=== PATIENT | female | born 1955 | race African-American/Black ===

== ENCOUNTER 2017-12-29 02:46 | Emergency (ER) | payer SELFPAY ==
[~2017-12-29] VITALS: Ht 165.1 cm; Wt 104.0 kg
[2017-12-29] MEDS ORDERED: KETOROLAC 30MG/ML VIAL IV STA (06:20)
[2017-12-29] MEDS ORDERED: LORAZEPAM 2MG/ML CPJ IV ONE (06:30)
[2017-12-29 06:36] LABS: BASOPHILS % 1.5 % (0.0-2.0); EOSINOPHILS % 2.2 % (0.0-5.0); HEMOGLOBIN. 11.2 g/dL (12.0-16.0); LYMPHOCYTES % 30.7 % (20.0-50.0); MEAN CORPUSCULAR HEMOGLOBIN 30.1 pg (28.0-32.0); MEAN CORPUSCULAR VOLUME 91.5 fL (81.0-99.0); MEAN PLATELET VOLUME 7.2 fl (7.4-10.4); MONOCYTES % 7.9 % (2.0-8.0); NEUTROPHILS % 57.7 % (40.0-76.0); PLATELET 427 x1000/uL (130-400); RED BLOOD CELL COUNT 3.71 mill/uL (4.2-5.4); RED CELL DISTRIBUTION WIDTH 14.7 % (11.6-14.6)
[2017-12-29 06:41] LABS: CHLORIDE 110 mEq/L (98-107)
[2017-12-29 08:36] VITALS: BP 106/71
== END 2017-12-29 08:41 | disposition home or self-care (01) ==
LOC: ER 02:46
DX: M79.7 Fibromyalgia (principal); F41.9 Anxiety disorder, unspecified; I10 Essential (primary) hypertension; D64.9 Anemia, unspecified; G47.00 Insomnia, unspecified; Z90.49 Acquired absence of other specified parts of digestive tract; Z98.84 Bariatric surgery status; Z88.6 Allergy status to analgesic agent
CPT/HCPCS: 36415; 80053; 85025; 96374; 96375; 99284; J1885; J2060; Z7610

== ENCOUNTER 2019-08-12 03:01 | Inpatient (IN) | payer BC ==
[2019-08-12] VITALS (35 sets, daily range): BP systolic 90–171; BP diastolic 64–116
[~2019-08-12] VITALS: Ht 167.6 cm; Wt 83.1 kg
[2019-08-12] MEDS ORDERED: SUCCINYLCHOLINE CHLORIDE 200MG/10ML IV ONE ×2 (03:05→03:15)
[2019-08-12] MEDS ORDERED: ETOMIDATE 2MG/ML 10ML VIAL IV ONE ×2 (03:05→03:15)
[2019-08-12] MEDS ORDERED: SODIUM CHLORIDE 0.9% 1,000 ML IV ONE (03:09)
[2019-08-12] MEDS ORDERED: ONDANSETRON HCL 4MG/2ML INJ IV STA (03:09)
[2019-08-12] MEDS ORDERED: PROPOFOL 10MG/ML 100ML 100 ML IV ONE ×2 (03:15→07:00)
[2019-08-12 04:04] LABS: HEMATOCRIT. 42.4 % (36.0-48.0); HEMOGLOBIN. 13.7 g/dL (12.0-16.0); LYMPHOCYTES % 44.4 % (20.0-50.0); MEAN CORPUSCULAR VOLUME 93.1 fL (81.0-99.0); MEAN PLATELET VOLUME 8.8 fl (7.4-10.4); MONOCYTES % 9.7 % (2.0-8.0); NEUTROPHILS % 42.9 % (40.0-76.0); PLATELET 220 x1000/uL (130-400); RED BLOOD CELL COUNT 4.56 mill/uL (4.2-5.4)
[2019-08-12 04:08] LABS: CHLORIDE 109 mEq/L (98-107)
[2019-08-12 04:10] LABS: PARTIAL THROMBOPLASTIN TIME 24.7 sec (23.4-31.0); PROTHROMBIN TIME 10.7 sec (9.6-11.0)
[2019-08-12 04:12] LABS: ETHANOL BLOOD < 10 mg/dL
[2019-08-12 05:01] LABS: CLARITY URINE CLEAR (CLEAR); COLOR URINE YELLOW (YELLOW); KETONES URINE NEGATIVE (NEGATIVE); LEUKOCYTE ESTERASE URINE NEGATIVE (NEGATIVE); NITRITE URINE NEGATIVE (NEGATIVE); OCCULT BLOOD URINE 1+ (NEGATIVE); PH URINE 7.5 (4.5-8.0); PROTEIN URINE NEGATIVE (NEGATIVE); SPECIFIC GRAVITY URINE 1.013 (1.005-1.030); UROBILINOGEN URINE 0.2 E.U./dL (0.2-1.0)
[2019-08-12 05:21] LABS: *AMPHETAMINES SCREEN URINE NEGATIVE (NEGATIVE); *BARBITURATES SCREEN URINE NEGATIVE (NEGATIVE); *BENZODIAZEPINES SCREEN URINE PRESUMTIVE POSITIVE (NEGATIVE); *COCAINE SCREEN URINE NEGATIVE (NEGATIVE); CANNABINOID URINE SCREEN NEGATIVE (NEGATIVE); PHENCYCLIDINE URINE SCREEN NEGATIVE (NEGATIVE)
[2019-08-12 05:22] LABS: METHADONE URINE SCREEN NEGATIVE (NEGATIVE); OPIATES URINE SCREEN NEGATIVE (NEGATIVE)
[2019-08-12] MEDS ORDERED: ONDANSETRON HCL 4MG/2ML INJ IV PRN (08:45)
[2019-08-12] MEDS ORDERED: CLONIDINE 0.1MG TABLET PO PRN (08:45)
[2019-08-12] MEDS ORDERED: ACETAMINOPHEN 325MG TABLET PO PRN (08:45)
[2019-08-12 09:03] LABS: PHOSPHORUS 3.9 mg/dL (2.5-4.9)
[2019-08-12] MEDS ORDERED: PIPERACILLIN/TAZ 3.375G PREMIX 50 ML IV SCH ×2 (09:15→18:00)
[2019-08-12] MEDS: SODIUM CHLORIDE 0.9% 1,000 ML IV SCH ×2 (09:17→12:46)
[2019-08-12 09:47] LABS: BG BASE EXCESS -7.8 mmol/L (-2.0-2.0); BG CARBOXYHEMOGLOBIN 0.5 % (0.5-1.5); BG DEOXYHEMOGLOBIN 0.6 % (0.0-5.0); BG FRACTION INSPIRED OXYGEN 100; BG HCO3 ACT 17.7 mmol/L (22.0-26.0); BG METHEMOGLOBIN 0.2 % (0.0-1.5); BG OXYGEN SATURATION 99.4 % (92.0-98.5); BG OXYHEMOGLOBIN 98.7 % (94.0-97.0); BG PH 7.309 (7.350-7.450); BG PO2 319.5 mmHg (75.0-100.0); BG SAMPLE SITE RIGHT FEMORAL; BG TIDAL VOLUME(mL) 500 mL; BG TOTAL HEMOGLOBIN 13.5 g/dL (12.0-18.0); BG VENT MODE VENT - A/C; BG VENT RATE 14 set
[2019-08-12] MEDS ORDERED: IPRATROPIUM/ALBUTEROL 0.5-3(2.5)MG/3ML NEB HHN PRN (10:15)
[2019-08-12] MEDS: IPRATROPIUM/ALBUTEROL 0.5-3(2.5)MG/3ML NEB HHN SCH ×3 (12:00→21:07)
[2019-08-12] MEDS: PANTOPRAZOLE SODIUM 40 MG/VIAL IV SCH (12:40)
[2019-08-12] MEDS: PROPOFOL 10MG/ML 100ML 100 ML IV PRN ×3 (12:40→21:30)
[2019-08-12] MEDS: ENOXAPARIN 40MG/0.4ML SYR SUBCUT SCH (12:41)
[2019-08-12] MEDS: PIPERACILLIN/TAZOBACTAM 3.375 G in DEXT 5% WATER 100 ML IV SCH ×2 (16:00→22:00)
[2019-08-12 16:17] LABS: CREATINE KINASE MB FRACTION 2.1 ng/mL (0.5-3.6)
[2019-08-12] MEDS ORDERED: DEXTROSE 50% WATER 50ML SYRINGE IV PRN (17:30)
[2019-08-12] MEDS: INSULIN LISPRO 100 UNITS/ML SUBCUT SCH (21:00)
[2019-08-12] MEDS: BLOOD SUGAR DIAGNOSTIC STRIP TEST SCH (22:55)
[2019-08-13] VITALS (63 sets, daily range): BP systolic 88–159; BP diastolic 63–111
[2019-08-13 00:03] LABS: CREATINE KINASE MB FRACTION 2.3 ng/mL (0.5-3.6)
[2019-08-13] MEDS: IPRATROPIUM/ALBUTEROL 0.5-3(2.5)MG/3ML NEB HHN SCH ×3 (02:33→13:49)
[2019-08-13] MEDS: PROPOFOL 10MG/ML 100ML 100 ML IV PRN ×6 (03:50→21:02)
[2019-08-13] MEDS: PIPERACILLIN/TAZOBACTAM 3.375 G in DEXT 5% WATER 100 ML IV SCH ×4 (04:07→21:01)
[2019-08-13 06:23] LABS: CHLORIDE 113 mEq/L (98-107)
[2019-08-13 06:25] LABS: BASOPHILS % 0.7 % (0.0-2.0); EOSINOPHILS % 1.5 % (0.0-5.0); HEMATOCRIT. 42.5 % (36.0-48.0); HEMOGLOBIN. 14.1 g/dL (12.0-16.0); LYMPHOCYTES % 20.7 % (20.0-50.0); MEAN CORPUSCULAR HEMOGLOBIN 30.6 pg (28.0-32.0); MEAN CORPUSCULAR VOLUME 92.2 fL (81.0-99.0); MEAN PLATELET VOLUME 9.3 fl (7.4-10.4); MONOCYTES % 7.3 % (2.0-8.0); NEUTROPHILS % 69.8 % (40.0-76.0); PLATELET 201 x1000/uL (130-400); RED BLOOD CELL COUNT 4.61 mill/uL (4.2-5.4); RED CELL DISTRIBUTION WIDTH 15.1 % (11.6-14.6)
[2019-08-13 06:38] LABS: HDL CHOLESTEROL 71 mg/dL (40-59)
[2019-08-13 06:41] LABS: LDL CHOLESTEROL 117 mg/dL (5-100)
[2019-08-13] MEDS: SODIUM CHLORIDE 0.9% 1,000 ML IV SCH ×2 (06:59→21:51)
[2019-08-13 08:01] LABS: BG BASE EXCESS -0.7 mmol/L (-2.0-2.0); BG CARBOXYHEMOGLOBIN 0.7 % (0.5-1.5); BG METHEMOGLOBIN 0.3 % (0.0-1.5); BG PCO2 31.2 mmHg (35.0-45.0); BG PH 7.466 (7.350-7.450); BG PO2 175.6 mmHg (75.0-100.0); BG SAMPLE SITE RIGHT BRACHIAL; BG TIDAL VOLUME(mL) 500 mL; BG TOTAL HEMOGLOBIN 14.4 g/dL (12.0-18.0); BG VENT MODE VENT - A/C; BG VENT RATE 16 set
[2019-08-13] MEDS: PANTOPRAZOLE SODIUM 40 MG/VIAL IV SCH (09:36)
[2019-08-13] MEDS: ENOXAPARIN 40MG/0.4ML SYR SUBCUT SCH (09:37)
[2019-08-13] MEDS ORDERED: KCL 20MEQ/100ML PREMIX 100 ML IV SCH (11:00)
[2019-08-13] MEDS: BLOOD SUGAR DIAGNOSTIC STRIP TEST SCH ×2 (11:30→21:00)
[2019-08-13] MEDS: INSULIN LISPRO 100 UNITS/ML SUBCUT SCH ×2 (12:00→21:00)
[2019-08-14] VITALS (96 sets, daily range): BP systolic 91–198; BP diastolic 58–111
[2019-08-14] MEDS: PIPERACILLIN/TAZOBACTAM 3.375 G in DEXT 5% WATER 100 ML IV SCH ×4 (02:24→20:57)
[2019-08-14] MEDS: IPRATROPIUM/ALBUTEROL 0.5-3(2.5)MG/3ML NEB HHN SCH ×4 (03:06→21:02)
[2019-08-14] MEDS: PROPOFOL 10MG/ML 100ML 100 ML IV PRN ×5 (04:10→22:48)
[2019-08-14] MEDS: BLOOD SUGAR DIAGNOSTIC STRIP TEST SCH ×4 (05:57→23:32)
[2019-08-14] MEDS: INSULIN LISPRO 100 UNITS/ML SUBCUT SCH ×4 (05:57→23:32)
[2019-08-14 07:53] LABS: BASOPHILS % 0.1 % (0.0-2.0); EOSINOPHILS % 2.5 % (0.0-5.0); HEMATOCRIT. 42.2 % (36.0-48.0); HEMOGLOBIN. 13.5 g/dL (12.0-16.0); LYMPHOCYTES % 16.2 % (20.0-50.0); MEAN CORPUSCULAR HEMOGLOBIN 29.7 pg (28.0-32.0); MEAN PLATELET VOLUME 9.1 fl (7.4-10.4); NEUTROPHILS % 73.2 % (40.0-76.0); PLATELET 201 x1000/uL (130-400); RED BLOOD CELL COUNT 4.54 mill/uL (4.2-5.4); RED CELL DISTRIBUTION WIDTH 15.4 % (11.6-14.6)
[2019-08-14 07:55] LABS: CHLORIDE 112 mEq/L (98-107)
[2019-08-14] MEDS: SODIUM CHLORIDE 0.9% 1,000 ML IV SCH ×2 (08:37→17:20)
[2019-08-14] MEDS: PANTOPRAZOLE SODIUM 40 MG/VIAL IV SCH (08:38)
[2019-08-14] MEDS: ENOXAPARIN 40MG/0.4ML SYR SUBCUT SCH (08:38)
[2019-08-14 09:25] LABS: BG BASE EXCESS -2.3 mmol/L (-2.0-2.0); BG CARBOXYHEMOGLOBIN 0.4 % (0.5-1.5); BG DEOXYHEMOGLOBIN 0.9 % (0.0-5.0); BG FRACTION INSPIRED OXYGEN 40; BG METHEMOGLOBIN 0.3 % (0.0-1.5); BG OXYGEN SATURATION 99.1 % (92.0-98.5); BG OXYHEMOGLOBIN 98.4 % (94.0-97.0); BG PCO2 31.7 mmHg (35.0-45.0); BG PH 7.438 (7.350-7.450); BG SAMPLE SITE RIGHT BRACHIAL; BG TIDAL VOLUME(mL) 500 mL; BG TOTAL HEMOGLOBIN 13.1 g/dL (12.0-18.0); BG VENT MODE VENT - A/C; BG VENT RATE 14 set
[2019-08-15] VITALS (85 sets, daily range): BP systolic 102–207; BP diastolic 66–130
[2019-08-15] MEDS: PIPERACILLIN/TAZOBACTAM 3.375 G in DEXT 5% WATER 100 ML IV SCH ×4 (02:16→21:44)
[2019-08-15] MEDS: PROPOFOL 10MG/ML 100ML 100 ML IV PRN ×5 (03:55→23:07)
[2019-08-15] MEDS: IPRATROPIUM/ALBUTEROL 0.5-3(2.5)MG/3ML NEB HHN SCH ×3 (04:59→20:52)
[2019-08-15] MEDS: INSULIN LISPRO 100 UNITS/ML SUBCUT SCH ×4 (05:16→23:23)
[2019-08-15] MEDS: BLOOD SUGAR DIAGNOSTIC STRIP TEST SCH ×4 (05:16→23:23)
[2019-08-15] MEDS: SODIUM CHLORIDE 0.9% 1,000 ML IV SCH (05:16)
[2019-08-15 05:41] LABS: BASOPHILS % 0.3 % (0.0-2.0); EOSINOPHILS % 2.1 % (0.0-5.0); HEMATOCRIT. 40.3 % (36.0-48.0); HEMOGLOBIN. 13.3 g/dL (12.0-16.0); LYMPHOCYTES % 10.1 % (20.0-50.0); MEAN CORPUSCULAR HEMOGLOBIN 30.5 pg (28.0-32.0); MEAN CORPUSCULAR VOLUME 92.3 fL (81.0-99.0); MEAN PLATELET VOLUME 8.9 fl (7.4-10.4); MONOCYTES % 5.6 % (2.0-8.0); NEUTROPHILS % 81.9 % (40.0-76.0); PLATELET 176 x1000/uL (130-400); RED BLOOD CELL COUNT 4.37 mill/uL (4.2-5.4); RED CELL DISTRIBUTION WIDTH 15.2 % (11.6-14.6)
[2019-08-15 06:03] LABS: CHLORIDE 113 mEq/L (98-107)
[2019-08-15] MEDS: PANTOPRAZOLE SODIUM 40 MG/VIAL IV SCH (09:04)
[2019-08-15] MEDS: ENOXAPARIN 40MG/0.4ML SYR SUBCUT SCH (09:04)
[2019-08-15 12:23] LABS: BG BASE EXCESS 2.3 mmol/L (-2.0-2.0); BG CARBOXYHEMOGLOBIN 0.4 % (0.5-1.5); BG DEOXYHEMOGLOBIN 1.2 % (0.0-5.0); BG FRACTION INSPIRED OXYGEN 40; BG HCO3 ACT 27.3 mmol/L (22.0-26.0); BG METHEMOGLOBIN 0.3 % (0.0-1.5); BG OXYGEN SATURATION 98.8 % (92.0-98.5); BG OXYHEMOGLOBIN 98.1 % (94.0-97.0); BG PCO2 43.7 mmHg (35.0-45.0); BG PH 7.413 (7.350-7.450); BG PO2 165.3 mmHg (75.0-100.0); BG PRESSURE SUPPORT 15; BG SAMPLE SITE RIGHT BRACHIAL; BG TIDAL VOLUME(mL) 500 mL; BG TOTAL HEMOGLOBIN 13.5 g/dL (12.0-18.0); BG VENT MODE VENT - SIMV; BG VENT RATE 10 set
[2019-08-15 15:13] LABS: BG BASE EXCESS 2.1 mmol/L (-2.0-2.0); BG CARBOXYHEMOGLOBIN 0.3 % (0.5-1.5); BG DEOXYHEMOGLOBIN 1.3 % (0.0-5.0); BG FRACTION INSPIRED OXYGEN 40; BG HCO3 ACT 24.9 mmol/L (22.0-26.0); BG METHEMOGLOBIN 0.3 % (0.0-1.5); BG OXYGEN SATURATION 98.7 % (92.0-98.5); BG OXYHEMOGLOBIN 98.1 % (94.0-97.0); BG PCO2 32.9 mmHg (35.0-45.0); BG PH 7.497 (7.350-7.450); BG PO2 157.3 mmHg (75.0-100.0); BG PRESSURE SUPPORT 15; BG SAMPLE SITE RIGHT RADIAL; BG TIDAL VOLUME(mL) 500 mL; BG TOTAL HEMOGLOBIN 11.7 g/dL (12.0-18.0); BG VENT MODE VENT - SIMV; BG VENT RATE 6 set
[2019-08-16] VITALS (82 sets, daily range): BP systolic 106–194; BP diastolic 36–119
[2019-08-16] MEDS: SODIUM CHLORIDE 0.9% 1,000 ML IV SCH ×2 (00:13→16:30)
[2019-08-16] MEDS: IPRATROPIUM/ALBUTEROL 0.5-3(2.5)MG/3ML NEB HHN SCH ×4 (02:32→20:31)
[2019-08-16] MEDS: PIPERACILLIN/TAZOBACTAM 3.375 G in DEXT 5% WATER 100 ML IV SCH ×4 (02:35→20:14)
[2019-08-16] MEDS: PROPOFOL 10MG/ML 100ML 100 ML IV PRN ×2 (03:24→08:08)
[2019-08-16 05:55] LABS: BASOPHILS % 0.4 % (0.0-2.0); EOSINOPHILS % 3.7 % (0.0-5.0); LYMPHOCYTES % 13.4 % (20.0-50.0); MEAN CORPUSCULAR HEMOGLOBIN 30.4 pg (28.0-32.0); MEAN CORPUSCULAR VOLUME 93.4 fL (81.0-99.0); MEAN PLATELET VOLUME 8.9 fl (7.4-10.4); MONOCYTES % 9.5 % (2.0-8.0); PLATELET 181 x1000/uL (130-400); RED BLOOD CELL COUNT 4.29 mill/uL (4.2-5.4); RED CELL DISTRIBUTION WIDTH 15.3 % (11.6-14.6)
[2019-08-16] MEDS: INSULIN LISPRO 100 UNITS/ML SUBCUT SCH ×2 (06:00→13:30)
[2019-08-16] MEDS: BLOOD SUGAR DIAGNOSTIC STRIP TEST SCH ×2 (06:15→13:30)
[2019-08-16 06:20] LABS: CHLORIDE 113 mEq/L (98-107)
[2019-08-16] MEDS: ENOXAPARIN 40MG/0.4ML SYR SUBCUT SCH (08:02)
[2019-08-16] MEDS: PANTOPRAZOLE SODIUM 40 MG/VIAL IV SCH (08:02)
[2019-08-16 09:55] LABS: BG BASE EXCESS 0.7 mmol/L (-2.0-2.0); BG CARBOXYHEMOGLOBIN 0.3 % (0.5-1.5); BG DEOXYHEMOGLOBIN 1.3 % (0.0-5.0); BG FRACTION INSPIRED OXYGEN 40; BG HCO3 ACT 24.3 mmol/L (22.0-26.0); BG METHEMOGLOBIN 0.3 % (0.0-1.5); BG OXYGEN SATURATION 98.7 % (92.0-98.5); BG OXYHEMOGLOBIN 98.1 % (94.0-97.0); BG PCO2 35.3 mmHg (35.0-45.0); BG PH 7.455 (7.350-7.450); BG PO2 160.4 mmHg (75.0-100.0); BG PRESSURE SUPPORT 15; BG SAMPLE SITE RIGHT BRACHIAL; BG TIDAL VOLUME(mL) 500 mL; BG TOTAL HEMOGLOBIN 12.4 g/dL (12.0-18.0); BG VENT MODE VENT - SIMV; BG VENT RATE 10 set
[2019-08-16 12:21] LABS: BG CARBOXYHEMOGLOBIN 0.3 % (0.5-1.5); BG DEOXYHEMOGLOBIN 2.5 % (0.0-5.0); BG FRACTION INSPIRED OXYGEN 30; BG HCO3 ACT 26.3 mmol/L (22.0-26.0); BG METHEMOGLOBIN 0.2 % (0.0-1.5); BG OXYGEN SATURATION 97.5 % (92.0-98.5); BG PCO2 40.2 mmHg (35.0-45.0); BG PH 7.434 (7.350-7.450); BG PO2 105.7 mmHg (75.0-100.0); BG PRESSURE SUPPORT 8; BG SAMPLE SITE RIGHT BRACHIAL; BG TOTAL HEMOGLOBIN 12.6 g/dL (12.0-18.0); BG VENT MODE VENT - CPAP
[2019-08-16] MEDS ORDERED: LORAZEPAM 2MG/ML CPJ IV SCH (14:00)
[2019-08-16 15:31] LABS: BG BASE EXCESS 1.9 mmol/L (-2.0-2.0); BG DEOXYHEMOGLOBIN 2.4 % (0.0-5.0); BG FRACTION INSPIRED OXYGEN 30; BG HCO3 ACT 26.8 mmol/L (22.0-26.0); BG METHEMOGLOBIN 0.1 % (0.0-1.5); BG OXYGEN SATURATION 97.6 % (92.0-98.5); BG OXYHEMOGLOBIN 97.5 % (94.0-97.0); BG PCO2 43.1 mmHg (35.0-45.0); BG PH 7.411 (7.350-7.450); BG PO2 107.2 mmHg (75.0-100.0); BG PRESSURE SUPPORT 8; BG SAMPLE SITE RIGHT RADIAL; BG TOTAL HEMOGLOBIN 12.6 g/dL (12.0-18.0); BG VENT MODE VENT - CPAP
[2019-08-16] MEDS: DIPHENHYDRAMINE 50MG/ML VIAL IV PRN (22:37)
[2019-08-17] VITALS (23 sets, daily range): BP systolic 91–159; BP diastolic 18–97
[2019-08-17] MEDS: INSULIN LISPRO 100 UNITS/ML SUBCUT SCH
[2019-08-17] MEDS: IPRATROPIUM/ALBUTEROL 0.5-3(2.5)MG/3ML NEB HHN SCH ×4 (02:03→20:36)
[2019-08-17] MEDS: PIPERACILLIN/TAZOBACTAM 3.375 G in DEXT 5% WATER 100 ML IV SCH ×4 (02:25→20:28)
[2019-08-17] MEDS: ENOXAPARIN 40MG/0.4ML SYR SUBCUT SCH (09:03)
[2019-08-17] MEDS: PANTOPRAZOLE SODIUM 40 MG/VIAL IV SCH (09:03)
[2019-08-17] MEDS ORDERED: PNEUMOCOCCAL 23-VAL P-SAC VAC 0.5 ML IM ONE (10:15)
[2019-08-17] MEDS ORDERED: INFLUENZA VIRUS VACCINE(AFLURIA) 0.5ML SYR IM ONE (10:15)
[2019-08-17] MEDS ORDERED: VANCOMYCIN 1250MG in DEXTROSE 5% WATER 250ML IV SCH (13:00)
[2019-08-17] MEDS ORDERED: LISI-604 MT (18:57)
[2019-08-17] MEDS ORDERED: ALPR2TAB2 PO (18:58)
[2019-08-17] MEDS ORDERED: B50 MT (18:59)
[2019-08-17] MEDS ORDERED: IRON-16 PO (19:05)
[2019-08-18 00:05] VITALS: BP 144/80
[2019-08-18] MEDS: VANCOMYCIN 1 G PREMIX 200 ML IV SCH ×2 (00:36→12:26)
[2019-08-18] MEDS: DIPHENHYDRAMINE 50MG/ML VIAL IV PRN (00:36)
[2019-08-18] MEDS: IPRATROPIUM/ALBUTEROL 0.5-3(2.5)MG/3ML NEB HHN SCH ×3 (01:30→12:40)
[2019-08-18] MEDS: PIPERACILLIN/TAZOBACTAM 3.375 G in DEXT 5% WATER 100 ML IV SCH ×3 (02:23→15:00)
[2019-08-18 04:00] VITALS: BP 121/74
[2019-08-18 07:11] LABS: BASOPHILS % 0.6 % (0.0-2.0); EOSINOPHILS % 3.8 % (0.0-5.0); HEMATOCRIT. 37.3 % (36.0-48.0); HEMOGLOBIN. 12.4 g/dL (12.0-16.0); LYMPHOCYTES % 25.1 % (20.0-50.0); MEAN CORPUSCULAR HEMOGLOBIN 30.6 pg (28.0-32.0); MEAN PLATELET VOLUME 8.8 fl (7.4-10.4); MONOCYTES % 11.1 % (2.0-8.0); NEUTROPHILS % 59.4 % (40.0-76.0); PLATELET 238 x1000/uL (130-400); RED BLOOD CELL COUNT 4.05 mill/uL (4.2-5.4); RED CELL DISTRIBUTION WIDTH 14.7 % (11.6-14.6)
[2019-08-18 07:46] LABS: CHLORIDE 106 mEq/L (98-107)
[2019-08-18 08:00] VITALS: BP 138/80
[2019-08-18] MEDS: ENOXAPARIN 40MG/0.4ML SYR SUBCUT SCH (08:49)
[2019-08-18] MEDS: PANTOPRAZOLE SODIUM 40 MG/VIAL IV SCH (08:49)
[2019-08-18] MEDS ORDERED: POTASSIUM CHLORIDE 20MEQ TABLET SR PO NR (10:15)
[2019-08-18 10:59] LABS: BG BASE EXCESS 1.5 mmol/L (-2.0-2.0); BG CARBOXYHEMOGLOBIN 0.3 % (0.5-1.5); BG FRACTION INSPIRED OXYGEN 21; BG HCO3 ACT 25.7 mmol/L (22.0-26.0); BG METHEMOGLOBIN 0.5 % (0.0-1.5); BG OXYHEMOGLOBIN 94.2 % (94.0-97.0); BG PH 7.437 (7.350-7.450); BG PO2 74.7 mmHg (75.0-100.0); BG SAMPLE SITE RIGHT RADIAL; BG TOTAL HEMOGLOBIN 11.9 g/dL (12.0-18.0); BG VENT MODE ROOM AIR
[2019-08-18 12:00] VITALS: BP 114/63
[2019-08-18] MEDS ORDERED: DOXY100C2 MT (15:51)
[2019-08-18 16:00] VITALS: BP 152/86
[2019-08-18 16:36] VITALS: BP 152/86
== END 2019-08-18 18:56 | disposition home or self-care (01) | DRG 917 ==
LOC: ER 03:01 → MICUSO 05:22 → EDBEDREQSVC 05:27 → EDBEDREQTM 05:27 → EDBEDREQ 05:27 → ENRESERV 10:55 → 7WST 08-17 22:55
PROVIDERS: ADMIT Internal Medicine; ATTEND Internal Medicine
PROC: 5A1955Z Respiratory Ventilation, Greater than 96 Consecutive Hours (ICD-10-PCS; principal; 2019-08-12)
PROC: 0BH17EZ Insertion of Endotracheal Airway into Trachea, Via Natural or Artificial Opening (ICD-10-PCS; 2019-08-12)
DX: T42.4X1A Poisoning by benzodiazepines, accidental (unintentional), initial encounter (principal); J96.00 Acute respiratory failure, unspecified whether with hypoxia or hypercapnia; J69.0 Pneumonitis due to inhalation of food and vomit; G92 Toxic encephalopathy; J15.212 Pneumonia due to Methicillin resistant Staphylococcus aureus; E87.2 Acidosis; N39.0 Urinary tract infection, site not specified; F32.9 Major depressive disorder, single episode, unspecified; M79.7 Fibromyalgia; E11.9 Type 2 diabetes mellitus without complications; E87.6 Hypokalemia; F41.9 Anxiety disorder, unspecified; I10 Essential (primary) hypertension; R74.0 Nonspecific elevation of levels of transaminase and lactic acid dehydrogenase [LDH]; Z98.84 Bariatric surgery status; Z90.89 Acquired absence of other organs; Z88.8 Allergy status to other drugs, medicaments and biological substances; Y92.89 Other specified places as the place of occurrence of the external cause
CPT/HCPCS: 36415; 36600; 70551; 71045; 80048; 80053; 80061; 80305; 80320; 81003; 82140; 82375; 82550; 82553; 82805; 82962; 83605; 83735; 83880; 84100; 84145; 84443; 84478; 84484; 85025; 87070; 87077; 87804; 90686; 90732; 93005; 93970; 94003; 94640; 96365; 97116; 97162; 99291; C1893; C9113; J0330; J1200; J1650; J1815; J2060; J2405; J2543; J2704; J3370; J3480; J3490; J7030; J7060; G0480